=== PATIENT | male | born 1975 | race Hispanic/Latino ===

== ENCOUNTER → 2023-05-21 | Day surgery (SDC) | payer OTHER ==
[2023-05-14 15:21] LABS: ANION GAP 9.9 mmol/L (8-16); CALCIUM 8.8 mg/dL (8.4-10.2); CREATININE, SERUM 1.01 mg/dL (0.72-1.25); POTASSIUM 3.9 mmol/L (3.5-5.1)
[~2023-05-21] MED LIST: ACETAMINOPHEN-1 EAC4 PO; BUPIVACAINE HCL 0.5% INJ 30 ML VIAL INJ ONE; CRESTOR10 MG PO; FAMOTIDINE 20 MG/2 ML VIAL IV ONE; FENTANYL CITRATE/PF 100MCG/2 ML INJ ONE; LACTATED RINGER'S 1,000 ML ONE; METFORMIN HCL500 M2 PO; MIDAZOLAM HCL 2 MG/2 ML VIAL ONE; MUPIROCIN 2% OINT 22 GM TUBE ONE; SIMVASTATIN20 MG PO; SODIUM CHLORIDE 0.9% INJ 10 ML VIAL ONE
[2023-05-21 07:34] VITALS: TEMP 98.7
[2023-05-21 08:25] VITALS: BP 146/86; PULSE 71; RESP 17; O2SAT 99
== END | disposition home or self-care (01) ==
LOC: OR 05:38
PROVIDERS: ATTEND Plastic Surgery
DX: M65.332 Trigger finger, left middle finger (principal); M65.341 Trigger finger, right ring finger; I10 Essential (primary) hypertension; E78.5 Hyperlipidemia, unspecified; E11.9 Type 2 diabetes mellitus without complications; Z79.84 Long term (current) use of oral hypoglycemic drugs; F17.200 Nicotine dependence, unspecified, uncomplicated; H91.90 Unspecified hearing loss, unspecified ear
CPT/HCPCS: 26055 ×2; 36415 ×2; 80048; 82948; 93005; J0690; J2250; J3010; J7121